=== PATIENT | female | born 1980 | race Caucasian/White ===

== ENCOUNTER 2017-04-17 08:00 | Outpatient (CLI) | payer MEDICARE, MEDICAID ==
[2017-04-17 18:24] LABS: BASOPHILS % (AUTO) 0.7 %; EOSINOPHILS # (AUTO) 0.1 10^3/uL (0.0-0.7); EOSINOPHILS % (AUTO) 1.8 %; HGB - HEMOGLOBIN 12.9 g/dL (12.0-16.0); LYMPHOCYTES % (AUTO) 32.6 %; MEAN CORPUSCULAR HEMOGLOBIN 29.9 pg (27.0-31.0); MEAN CORPUSCULAR HGB CONC 33.5 g/dL (32.0-36.0); MEAN CORPUSCULAR VOLUME 89.2 fL (81.0-99.0); MEAN PLATELET VOLUME 7.8 fL (7.9-10.8); MONOCYTES # (AUTO) 0.5 10^3/uL (0.0-1.0); MONOCYTES % (AUTO) 7.7 %; NEUTROPHILS # (AUTO) 3.5 10^3/uL (1.5-6.6); NEUTROPHILS % (AUTO) 57.2 %; PLT - PLATELET COUNT 200 10^3/uL (130-450); RED BLOOD COUNT 4.31 10^6/uL (4.20-5.40); RED CELL DISTRIBUTION WIDTH 13.6 % (12.0-15.0); WHITE BLOOD COUNT 6.1 x10^3/uL (4.8-10.8)
[2017-04-17 18:54] LABS: ALBUMIN 4.5 g/dL (3.2-5.5); ALBUMIN/GLOBULIN RATIO 1.3 (1.0-2.2); ALKALINE PHOSPHATASE 63 IU/L (42-121); ALT ALANINE AMINOTRANSFERASE 25 IU/L (10-60); AST ASPARTATE AMINOTRANSFERASE 22 IU/L (10-42); BILIRUBIN,TOTAL 0.4 mg/dL (0.2-1.0); BUN - BLOOD UREA NITROGEN 24 mg/dL (6-20); CALCIUM 9.4 mg/dL (8.5-10.3); CARBON DIOXIDE - CO2 25 mmol/L (21-32); CHLORIDE 101 mmol/L (101-111); CREATININE 0.8 mg/dL (0.4-1.0); GFR - MDRD 80 (>89); GLUCOSE 94 mg/dL (70-100); SODIUM 138 mmol/L (135-145); TOTAL PROTEIN 7.9 g/dL (6.7-8.2)
== END 2017-04-17 08:01 | disposition home or self-care (01) ==
LOC: LAB.S 08:00
PROVIDERS: ATTEND Nurse Practitioner Family
DX: C49.9 Malignant neoplasm of connective and soft tissue, unspecified (principal); R53.83 Other fatigue
CPT/HCPCS: 36415; 80053; 84443; 85025

== ENCOUNTER 2018-08-27 15:32 | Outpatient (CLI) | payer MEDICARE | END 2018-08-27 15:33 | disposition home or self-care (01) | LOC: SC 15:32 | PROVIDERS: ATTEND Internal Medicine Pulmonary Disease | DX: G47.10 Hypersomnia, unspecified (principal); R41.89 Other symptoms and signs involving cognitive functions and awareness; G47.8 Other sleep disorders; R06.83 Snoring; G47.09 Other insomnia; E66.9 Obesity, unspecified; Z68.36 Body mass index [BMI] 36.0-36.9, adult | CPT/HCPCS: 99203; G0463; 99212 ==

== ENCOUNTER 2018-10-15 19:36 | Outpatient (CLI) | payer MEDICARE | END 2018-10-15 19:37 | disposition home or self-care (01) | LOC: SC 19:36 | PROVIDERS: ATTEND Internal Medicine Pulmonary Disease | DX: G47.33 Obstructive sleep apnea (adult) (pediatric) (principal) | CPT/HCPCS: 95810 ==

== ENCOUNTER 2018-10-30 09:44 | Outpatient (CLI) | payer MEDICARE ==
--- NOTE | 2018-10-30 10:18 | SLEEP CARE CONSULTATION ---
Information from patient questionnaire entered by Yady Wolf. I have reviewed and concur with the information entered by Yady Wolf. This document represents the service I personally performed and the decisions made by me, Fela Cartwright MD, [facility]. History of Present Illness Initial [place] Sleepiness Scale score: 8 Current [place] Sleepiness Scale score: 8 Additional HPI information: HPI: returned for follow up of the sleep study she had on 10/15/18. The polysomnography showed that the patient had normal sleep efficiency. The sleep architecture was relatively normal considering the first-night effect. Respiratory monitoring showed mild obstructive sleep apnea-hypopnea (AHI = 8.7) associated with oxyhemoglobin desaturation and mild hypoxia (patricia oxygen saturation of 83%) but not sleep fragmentation. The respiratory events occurred almost exclusively during supine sleep (supine AHI = 13.5; non-supine = 1.92). Snore was moderate in intensity. There was no significant periodic leg movement of sleep. Cardiac rhythm was normal sinus rhythm without significant arrhythmia. No abnormal behavior (parasomnia) observed during the night. The patient was informed of these findings. I explained to her the pathop hysiology behind obstructive sleep apnea. We then spent quite a bit of time discussing different treatment options. For mild obstructive sleep apnea, surgery and oral appliance are alternatives to nasal CPAP therapy but in moderate or severe cases, nasal CPAP is the most effective and reliable treatment. After some discussion, she would like to think about it. Allergies and Home Medications Home medication list reviewed: Yes Review of Systems Review of systems same as previous: Yes Impression and Plan IMPRESSION: 1. Obstructive Sleep Apnea-Hypopnea Syndrome, mild, associated with mild hypoxemia and sleep fragmentation. Possibly, this is the cause of the patients symptoms of frequent awakenings, unrefreshed sleep, and excessive daytime sleepiness. As mentioned above, the patient will decide what to do next. A prescription for CPAP is made and will be left in her chart in case she would like to try the treatment. PLAN: 1. Prescription made for an autoCPAP with heated humidifier 2. Attempt to lose weight. 3. Avoid sleeping supine if not using CPAP. 4. Return for a follow up should she decides to use CPAP. Also return she her weight increase or decrease by more than 20 lbs. I spent 100% of this 15 minute visit face to face with the patient with greater than 50% of this was spent time counseling the patient and coordination of care.
== END 2018-10-30 09:45 | disposition home or self-care (01) ==
LOC: SC 09:44
PROVIDERS: ATTEND Internal Medicine Pulmonary Disease
DX: G47.33 Obstructive sleep apnea (adult) (pediatric) (principal)
CPT/HCPCS: 99213; G0463; 99212

== ENCOUNTER 2020-12-17 09:45 | Outpatient (CLI) | payer MEDICARE ==
[2020-12-17 14:59] LABS: HCT - HEMATOCRIT 42.5 % (37.0-47.0); HGB - HEMOGLOBIN 13.7 g/dL (12.0-16.0); MEAN CORPUSCULAR HEMOGLOBIN 30.8 pg (27.0-31.0); MEAN CORPUSCULAR HGB CONC 32.2 g/dL (32.0-36.0); MEAN CORPUSCULAR VOLUME 95.5 fL (81.0-99.0); MEAN PLATELET VOLUME 10.1 fL (7.9-10.8); RED BLOOD COUNT 4.45 10^6/uL (4.20-5.40); RED CELL DISTRIBUTION WIDTH 12.4 % (12.0-15.0); WHITE BLOOD COUNT 4.8 x10^3/uL (4.8-10.8)
[2020-12-17 15:25] LABS: ALBUMIN 4.4 g/dL (3.2-5.5); ALBUMIN/GLOBULIN RATIO 1.4 (1.0-2.2); ALKALINE PHOSPHATASE 61 IU/L (42-121); ALT ALANINE AMINOTRANSFERASE 15 IU/L (10-60); AST ASPARTATE AMINOTRANSFERASE 15 IU/L (10-42); BILIRUBIN,TOTAL 0.9 mg/dL (0.2-1.0); BUN - BLOOD UREA NITROGEN 16 mg/dL (6-20); CALCIUM 9.3 mg/dL (8.5-10.3); CARBON DIOXIDE - CO2 25 mmol/L (21-32); CHLORIDE 102 mmol/L (101-111); CHOL/HDL RATIO 4.4 (<4.4); CHOLESTEROL 252 mg/dL; CREATININE 0.6 mg/dL (0.4-1.0); GFR - MDRD 110 (>89); GLUCOSE 97 mg/dL (70-100); HDL CHOLESTEROL 57 mg/dL; LDL CHOLESTEROL,CALCULATED 179 mg/dL; LDL/HDL RATIO 3.1 (<4.4); POTASSIUM 3.9 mmol/L (3.5-5.0); SODIUM 138 mmol/L (135-145); TOTAL PROTEIN 7.5 g/dL (6.7-8.2); TRIGLYCERIDES 78 mg/dL; VLDL CHOLESTEROL 16 mg/dL
== END 2020-12-17 09:46 | disposition home or self-care (01) ==
LOC: LAB.S 09:45
PROVIDERS: ATTEND Nurse Practitioner Family
DX: Z00.00 Encounter for general adult medical examination without abnormal findings (principal); Z92.21 Personal history of antineoplastic chemotherapy; G62.9 Polyneuropathy, unspecified; Z13.6 Encounter for screening for cardiovascular disorders
CPT/HCPCS: 36415; 80053; 80061; 83721; 85027

== ENCOUNTER 2023-08-24 13:24 | Outpatient (CLI) | payer MEDICARE ==
[2023-08-24 20:13] LABS: BASOPHILS % (AUTO) 0.8 %; EOSINOPHILS # (AUTO) 0.1 10^3/uL (0.0-0.7); EOSINOPHILS % (AUTO) 1.7 %; HCT - HEMATOCRIT 39.9 % (37.0-47.0); HGB - HEMOGLOBIN 13.1 g/dL (12.0-16.0); LYMPHOCYTES # (AUTO) 1.9 10^3/uL (1.5-3.5); LYMPHOCYTES % (AUTO) 36.4 %; MEAN CORPUSCULAR HEMOGLOBIN 30.7 pg (27.0-31.0); MEAN CORPUSCULAR HGB CONC 32.8 g/dL (32.0-36.0); MEAN CORPUSCULAR VOLUME 93.4 fL (81.0-99.0); MEAN PLATELET VOLUME 10.5 fL (7.9-10.8); MONOCYTES # (AUTO) 0.4 10^3/uL (0.0-1.0); MONOCYTES % (AUTO) 7.4 %; NEUTROPHILS # (AUTO) 2.8 10^3/uL (1.5-6.6); NEUTROPHILS % (AUTO) 53.5 %; PLT - PLATELET COUNT 202 10^3/uL (130-450); RED BLOOD COUNT 4.27 10^6/uL (4.20-5.40); RED CELL DISTRIBUTION WIDTH 12.5 % (12.0-15.0); WHITE BLOOD COUNT 5.3 x10^3/uL (4.8-10.8)
[2023-08-24 20:45] LABS: ALBUMIN 4.3 g/dL (3.2-5.5); ALBUMIN/GLOBULIN RATIO 1.5 (1.0-2.2); BILIRUBIN,TOTAL 0.4 mg/dL (0.2-1.0); CALCIUM 9.5 mg/dL (8.5-10.3); CREATININE 0.6 mg/dL (0.6-1.3); POTASSIUM 4.4 mmol/L (3.5-4.5); TOTAL PROTEIN 7.2 g/dL (6.4-8.9)
[2023-08-24 21:09] LABS: ESTIMATED AVERAGE GLUCOSE 100 mg/dL (70-100); HEMOGLOBIN A1c% 5.1 % (4.27-6.07)
== END 2023-08-24 13:25 | disposition home or self-care (01) ==
LOC: LAB.S 13:24
PROVIDERS: ATTEND Registered Nurse
DX: F32.1 Major depressive disorder, single episode, moderate (principal); F41.0 Panic disorder [episodic paroxysmal anxiety]
CPT/HCPCS: 36415; 80053; 82306; 83036; 85025

== ENCOUNTER 2023-11-21 13:16 | Emergency (ER) | payer MEDICARE ==
[2023-11-21 14:51] VITALS: BP 129/70; O2SAT 99
--- NOTE | 2023-11-21 16:09 | ED Physician Documentation ---
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 Patient says that she has been cleansing it with soap and water at home overall has been doing well but she has noticed last couple days there was some new erythema surrounding the wound with some purulent drainage. No fevers or chills she has no feeling in that left lower extremity from her history of sarcoma and she said that she is unable to recall what happened because she has absolutely no feeling to that foot. 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 ) Derm: Skin grafts - Present Medications Home Medications: Ambulatory Orders Medication Instructions Recorded Confirmed Multivit-Min/Iron/Folic Acid/K 1 cap PO DAILY 04/01/15 11/21/23 [Multi For Her Softgel] Desvenlafaxine Succinate [Pristiq 25 mg PO DAILY 11/21/23 11/21/23 ER] Dextroamphetamine/Amphetamine 10 mg PO TID 11/21/23 11/21/23 [Adderall 10 mg Tablet] Doxycycline [Vibramycin] 100 mg PO BID 7 Days #14 tablet 11/21/23 Pregabalin 75 mg PO BID 11/21/23 11/21/23 cephALEXin [Keflex] 500 mg PO Q6H 7 Days #28 cap 11/21/23 traZODone [Desyrel] 50 mg PO HS 11/21/23 11/21/23 - Allergies Allergies/Adverse Reactions: Allergies Allergy/AdvReac Type Severity Reaction Status Date / Time omeprazole Allergy Intermediate Rash Verified 02/16/15 22:31 levofloxacin [From Levaquin] Allergy Unknown Verified 02/16/15 22:31 moxifloxacin Allergy Unknown Verified 02/16/15 22:31 - Social History Does the pt smoke?: No Smoking Status: Former smoker Does the pt drink ETOH?: Yes Does the pt have substance abuse?: No - Immunizations Immunizations are current?: Yes - POLST Patient has POLST: No PD ED PE NORMAL - Vitals Vital signs reviewed: Yes - General General: Alert and oriented X 3, No acute distress, Well developed/nourished - Derm Derm: Other (1cm wound to dorasal of left foot with base of wound that appears yellow/green) - Extremities Extremities: No deformity, Other (1+ pitting edema to LLE) - Psych Psych: Normal mood Results - Vitals Vitals: Vital Signs - 24 hr 11/21/23 13:45 Temperature 37.1 C Heart Rate 78 Respiratory 16 Rate Blood Pressure 129/70 O2 Saturation 99 Oxygen O2 Source Room air - Rads (name of study) 3V foot Xray Relevant Findings:: Final report received, EMP independent interpretation of test, Other (No acute bony abnormalities or findings) PD Medical Decision Making - ED course ED course: 43-year-old female presents emergency department for delayed healing to wound of her left foot. The wound does have some mild erythema surrounding it and the base of the wound does have some yellowish/green color to it. She says no fevers or chills. I completed x-rays just to make sure that there is no possibility of osteomyelitis although this is not entirely sensitive there is no acute bony abnormalities that were visualized. She was started on Keflex and doxycycline here in the emergency department and a prescription was sent to her preferred pharmacy. She was told to follow-up with primary care if she is in between primary care providers and she was given local resources of who to follow-up with as well as wound care for further evaluation of this a Mepilex was placed over the wound after wound cultures were collected she was informed that we will call her in a couple days if she needs to change antibiotics. Return precautions given all questions answered patient is safe for discharge at this time. Departure - Departure Disposition: 01 Home, Self Care Clinical Impression: Infected wound Instructions: ED Wound Care Prescriptions: cephALEXin [Keflex] 500 mg PO Q6H 7 Days #28 cap Doxycycline [Vibramycin] 100 mg PO BID 7 Days #14 tablet Comments: Thank you for trusting us with your care. As we discussed on [place] with specialist sooner. Unfortunately upon my further investigation we do not have a way of getting you in with anyone sooner for wound care. You can order the Mepilex borders online and change those dressing every 2 days wash it with soap and water do not use hydrogen peroxide or anything else to clean the wound. We did do wound cultures and we should have the results back in 2 to 3 days we will call you if you need to change the antibiotics but in the meantime continue with taking antibiotics as prescribed if you do not hear from us that means you will need to complete this full course of antibiotics. These come back in if you are not noticing any improvement of symptoms or any worsening symptoms after being on antibiotics for a total of 48 hours. Forms: PCP List Discharge Date/Time: 11/21/23 17:33
--- NOTE | 2023-11-21 16:53 | XRAY Report ---
PROCEDURE: Foot 3+V LT INDICATIONS: Left foot wound, r/o osteomyelitis TECHNIQUE: 3 views of the foot were acquired. COMPARISON: None. FINDINGS: Bones: No fractures or dislocations. No suspicious bony lesions. No radiopaque foreign body. Soft tissues: No tibiotalar joint effusion. Achilles tendon appears normal. Dorsal soft tissue swe lling. Small dorsal mid foot ulcer. IMPRESSION: No acute bony abnormality. Reviewed by: Jax Joiner MD on 11/21/2023 4:51 PM PDT Approved by: Jax Joiner MD on 11/21/2023 4:51 PM PDT Station ID: [id number]
[2023-11-21] MEDS: DOXYCYCLINE 100 MG TABLET PO STA (17:29)
[2023-11-21] MEDS: cephALEXin 250 MG CAPSULE PO STA (17:29)
== END 2023-11-21 17:33 | disposition home or self-care (01) ==
LOC: ED 13:16
DX: L08.89 Other specified local infections of the skin and subcutaneous tissue (principal); Z87.891 Personal history of nicotine dependence
CPT/HCPCS: 73630; 99284; A9270